=== PATIENT | female | born 1960 | race Caucasian/White ===

== ENCOUNTER 2019-06-19 16:13 | Emergency (ER) | payer OTHER, SELFPAY ==
[2019-06-19 16:20] VITALS: BP 125/70; PULSE 77; RESP 16; TEMP 36.8; O2SAT 100
--- NOTE | 2019-06-19 16:31 | ED.SKABFB ---
HPI - Skin/Abscess/Foreign Bdy General Chief complaint: Skin/Abscess/Foreign Body Stated complaint: rash Time Seen by Provider: 06/19/19 16:31 Source: patient and RN notes reviewed History of Present Illness HPI narrative: Patient is a 59-year-old female that presents the urgent care with complaints of possible shingles rash to the right neck, shoulder, right upper back. Patient states that it started approximately 3 days ago. Patient states that it is slightly painful with a burning sensation. Patient states she went to the chiropractor last Tuesday but otherwise has not used any different creams, detergents, lotions. Patient denies spread of the rash in any other locations. Patient has not had shingles in the past. No other acute complaints. No acute distress noted. Patient read the plan of care. Related Data Allergies Allergy/AdvReac Type Severity Reaction Status Date / Time sesame seed Allergy Mild Unknown Verified 06/19/19 16:15 latex Allergy Unknown ITCH Verified 01/23/19 20:09 Review of Systems Review of Systems: Narrative: CONSTITUTIONAL: Denies fever, chills, or sweats. EYES: Denies visual changes, redness, or discharge. ENT: Denies rhinorrhea, congestion, sore throat, or otalgia. CARDIOVASCULAR: Denies chest pain, palpitations, or edema. RESPIRATORY: Denies cough or dyspnea. GASTROINTESTINAL: Denies abdominal pain, nausea, vomiting, or diarrhea. GENITOURINARY: Denies dysuria or hematuria. SKIN: Reports of a painful burning itchy rash to the right neck, right shoulder, right upper back and right upper arm MUSCULOSKELETAL: Denies back pain, joint pain, or myalgia. NEUROLOGIC: Denies headache, numbness, or weakness. All other systems reviewed are negative, except as documented in HPI. PMFSH Comments At the time of my signature, I reviewed and agree with the nursing past medical, surgical, social, and family history. There is no relevant family history pertinent to the patient complaint. Exam Narrative: Exam Narrative: GENERAL: This is a well-nourished, well-developed patient, in no apparent distress. HEAD: normocephalic, atraumatic. EYES: PERRL. Sclera clear/white. Vision is grossly intact. EARS: External ears normal NOSE: External nose normal with no obvious nasal discharge THROAT: Mucous membranes moist NECK: Neck supple CARDIOVASCULAR: Regular rate and rhythm without murmurs, gallops, or rubs. RESPIRATORY: Clear to auscultation. Breath sounds equal bilaterally. No wheezes, rales, or rhonchi. SKIN: Pustular shingles rash noted to the right neck, right upper back, right shoulder and right upper arm near the axilla; rash appears to be in different stages with newer form pustular is near the right axilla; does not cross the midline NEURO: awake, alert, and oriented to person, place and time. There were no obvious focal neurologic abnormalities. EXTREMITIES: No clubbing, cyanosis, or edema. Course Vital Signs Vital signs: Vital Signs Temperature 98.3 F 06/19/19 16:20 Pulse Rate 77 06/19/19 16:20 Respiratory Rate 16 06/19/19 16:20 Blood Pressure 125/70 06/19/19 16:20 Pulse Oximetry 100 06/19/19 16:20 Temperature 98.3 F 06/19/19 16:20 Pulse Rate 77 06/19/19 16:20 Respiratory Rate 16 06/19/19 16:20 Blood Pressure 125/70 06/19/19 16:20 Pulse Oximetry 100 06/19/19 16:20 Reviewed MDM - Skin/Abscess/Foreign Bdy MDM Narrative Medical decision making narrative: Advised the patient to use prescription cream to the area as directed. Apply with a new washcloth during each application or gloved hand. Take precautions around younger children, women, and older adults. The rash should remain covered unless at home. May use ice packs or cool washcloths for comfort. Complete oral antiviral medication as prescribed. Medication may cause nausea and therefore patient should be eating and drinking with the medication. Advised patient to follow-up with her PCP within 1 week for reevalua
== END 2019-06-19 16:47 | disposition home or self-care (01) ==
PROVIDERS: Emergency Provider Nurse Practitioner Family
DX: B02.9 Zoster without complications (principal)
CPT/HCPCS: 99213; G0463

== ENCOUNTER 2020-01-29 18:50 | Emergency (ER) | payer OTHER, SELFPAY ==
[2020-01-29 18:58] VITALS: BP 125/77; PULSE 61; RESP 14; TEMP 36.3; O2SAT 100
--- NOTE | 2020-01-29 18:59 | ED_ITS ---
HPI - Female Genitourinary General Chief complaint: Urogenital-Female Stated complaint: kidney stone or bladder infection Time Seen by Provider: 01/29/20 19:00 Source: patient History of Present Illness HPI Narrative: PATIENT PRESENTS WITH A ONE WEEK HISTORY OF BURNING WITH URINATION AND LOW BACK PAIN. NO ABDOMINAL PAIN NO PELVIC PAIN NO CONCER FOR STD NO GROSS HEMATURIA AND NO FLANK PAIN. MD elicited complaint: dysuria and UTI Related Data Allergies Allergy/AdvReac Type Severity Reaction Status Date / Time sesame seed Allergy Mild Unknown Verified 01/29/20 19:06 latex Allergy Unknown ITCH Verified 01/29/20 19:06 Review of Systems Review of Systems: Narrative: CONSTITUTIONAL: Denies fever, chills, or sweats. EYES: Denies visual changes, redness, or discharge. ENT: Denies rhinorrhea, congestion, sore throat, or otalgia. CARDIOVASCULAR: Denies chest pain, palpitations, or edema. RESPIRATORY: Denies cough or dyspnea. GASTROINTESTINAL: Denies abdominal pain, nausea, vomiting, or diarrhea. GENITOURINARY: Denies dysuria or hematuria. SKIN: Denies rash or itching. MUSCULOSKELETAL: Denies back pain, joint pain, or myalgia. NEUROLOGIC: Denies headache, numbness, or weakness. PSYCHIATRIC: Denies anxiety or depression. PMFSH Comments At time of signature, agree with nursing past medical, surgical, social and family history. There is no relevant family history pertinent to the presenting complaint Exam Narrative: Exam Narrative: GENERAL: Well-appearing, well-nourished, and in no acute distress. HEAD: Normocephalic, atraumatic. EYES: PERRLA and EOMI. ENT: Nares clear, no rhinorrhea or epistaxis. Mucous membranes moist. NECK: Supple. CHEST: Clear to auscultation. No respiratory distress. HEART: Regular rate and rhythm. No murmur heard. Normal peripheral pulses. ABDOMEN: Soft, nontender, nondistended, normal active bowel sounds. EXTREMITIES: Normal range of motion. No edema. SKIN: Warm, dry, no rash. NEURO: No focal deficits. Alert and oriented x3. [place] Coma Scale Eye Opening: Spontaneous 4 [place] Coma Scale Motor: Obeys Commands 6 [place] Coma Scale Verbal: Oriented 5 [place] Coma Scale Total 15 MDM - Female Genitourinary Differential Diagnosis Differential diagnosis: Likely urinary tract infection, bacterial vaginosis, trichomoniasis, cervicitis, ovarian cyst, vaginitis, ruptured ovarian cyst, cyst of Bartholin's gland and dysmenorrhea Critical Care Time Critical Care Time Critical Care Time: No Discharge Plan Discharge Clinical Impression: Urinary tract infection, Dysuria Patient Disposition: Home, Self-Care Condition: Stable Instructions: Antibiotic Form, Urinary Tract Infection in Women (DC) Additional Instructions: Increase fluids especially cranberry juice and water Avoid caffeine and carbonated beverages Antibiotic as directed Medicine as directed--cautioned it will cause your urine to be bright orange Tylenol/ibuprofen for pain or fever Follow-up with her primary care provider if further problems or concerns Recheck if you have fever over 101, nausea and vomiting -If you have any worsening of symptoms or any other concerns please go to the ED immediately. Prescriptions: New cephalexin [Keflex] 500 mg capsule 500 mg PO Q12H Qty: 14 RF: 0 Follow-up/Referrals: PHYSICIAN,[facility] [Primary Care Provider] -
[2020-01-29 19:07] VITALS: BP 125/77; PULSE 61; RESP 14; TEMP 36.3; O2SAT 100
== END 2020-01-29 19:19 | disposition home or self-care (01) ==
PROVIDERS: Emergency Provider Nurse Practitioner Family
DX: R30.0 Dysuria (principal); J45.909 Unspecified asthma, uncomplicated; Z98.84 Bariatric surgery status
CPT/HCPCS: 81003; 87086; 87088; 99213; G0463